=== PATIENT | male | born 1945 | race Caucasian/White ===

== ENCOUNTER 2016-04-29 05:12 | Day surgery (SDC) | payer OTHER, MEDICARE ==
[2016-04-08 14:29] LABS: BASO % 0.5 %; BASO ABS # 0.03 K/uL (0-0.2); COMPLETE YES; EOS % 1.9 %; HEMATOCRIT 43.8 % (42-52); IG% 0.2 %; LYMPH % 34.3 %; LYMPH ABS # 1.94 K/uL (1.2-3.4); MEAN CELL VOLUME 89.2 fL (80-100); MEAN CORPUSCULAR HEMOGLOBIN 30.5 pg (25-34); MEAN CORPUSCULAR HGB CONC 34.2 g/dl (32-36); MEAN PLATELET VOLUME 11.3 fL (7.4-10.4); MONO % 6.9 %; NEUT % 56.2 %; PLATELET COUNT 159 K/uL (130-400); RED BLOOD COUNT 4.91 M/uL (4.7-6.1); WHITE BLOOD COUNT 5.65 K/uL (4.8-10.8)
[2016-04-08 14:37] LABS: BLOOD UREA NITROGEN 19 mg/dl (7-18); BUN/CREATININE RATIO 19.1 (10-20); CALCIUM 8.9 mg/dl (8.5-10.1); CARBON DIOXIDE 28 mmol/L (21-32); CHLORIDE 104 mmol/L (98-107); GLUCOSE 113 mg/dl (70-99); POTASSIUM 4.3 mmol/L (3.5-5.1); SODIUM 141 mmol/L (136-145)
[2016-04-20 09:37] VITALS: BMI 24.0
[~2016-04-29] VITALS: Ht 175.3 cm; Wt 73.6 kg
[~2016-04-29 05:12] MED LIST: ASPI81TA28 PO; CHOL1000 PO; MULTCAP94 PO
[2016-04-29 05:32] VITALS: BP 159/82; PULSE 82; TEMP 36.7; O2SAT 95; Ht 175.3 cm; Wt 73.6 kg
[2016-04-29] MEDS ORDERED: LACTATED RINGER'S 1000ML 1,000 ML IV SCH ×3 (06:00→08:23)
--- NOTE | 2016-04-29 06:13 | History & Physical Bridge Note ---
H&P Re-Evaluation Bridge Note: I have examined the patient, reviewed the History & Physical and in the interval since the performance of the History & Physical I have noted the following changes of clinical significance: No changes noted pt marked at bedside
[2016-04-29] MEDS ORDERED: BUPIVACAINE 0.5 % 5 MG/1 ML MPF 30ML VIAL ONE (06:38)
[2016-04-29] MEDS ORDERED: FENTANYL CITRATE INJ 50 MCG/1 ML 2 ML VIAL ONE ×3 (06:39→08:25)
[2016-04-29] MEDS ORDERED: MIDAZOLAM HCL 1 MG/ML 2ML VIAL ONE (06:39)
[2016-04-29] MEDS ORDERED: LIDOCAINE HCL 2% 2 ML VIAL (20MG/ML) ONE (07:14)
[2016-04-29] MEDS ORDERED: PROPOFOL IV EMULSION 10 MG/ML 20 ML VIAL IV ONE (07:14)
[2016-04-29] MEDS ORDERED: DEXAMETHASONE SOD INJ 4 MG/ML VIAL ONE (07:14)
[2016-04-29] MEDS ORDERED: ONDANSETRON INJ 2 MG/ML 2 ML VIAL ONE ×2 (07:14→08:59)
[2016-04-29] MEDS ORDERED: EpHEDrine SULFATE INJ 50 MG/ML AMP ONE (07:50)
[2016-04-29] MEDS ORDERED: KETOROLAC TROMETHAMINE 30 MG/ML VIAL ONE (08:04)
[2016-04-29] MEDS ORDERED: BACITRACIN 50,000 UNITS IR ONE (08:07)
[2016-04-29] MEDS ORDERED: OXYC-57 PO (08:15)
--- NOTE | 2016-04-29 08:16 | Discharge Instructions ---
Discharge Instructions Visit Reason for Visit: Left Inguinal Hernia Discharge Discharge Diagnosis / Problem: Inguinal hernia repair Activity Recommendations Activity Limitations: as noted below Lifting Limitations: no more than 10 pounds Shower/Bathe: tomorrow Driving or Machine Use: resume 3 days after discharge Anesthesia . Post Anesthesia Instructions: If you have had General Anesthesia or IV Sedation: * Do not drive today. * Resume driving when surgeon permits. * Do not make important decisions or sign legal documents today. * Call surgeon for: 1. Temperature elevations greater than 101 degrees F. 2. Uncontrollable pain. 3. Excessive bleeding. 4. Persistent nausea and vomiting. 5. Medication intolerance (nausea, vomiting or rash). * For nausea and vomiting use only clear liquids such as: tea, soda, bouillon until nausea subsides, then gradually increase diet as tolerated. * If you have any concerns or questions, call your surgeon's office. If physician is unavailable and it is an emergency, call 911 or go to the nearest emergency room. . Instructions / Follow-Up Instructions / Follow-Up Dr. Leal in 1 week, call [phone] if you do not already have an appt Diet Recommendations Recommended Home Diet: no limitations Procedures Procedures Performed: Left Open Inguinal Hernia Repair with Mesh Pending Studies Studies pending at discharge: no Medical Emergencies . Who to Call and When: Medical Emergencies: If at any time you feel your situation is an emergency, please call 911 immediately. . Non-Emergent Contact Non-Emergency issues call your: Surgeon Call Non-Emergent contact if: you have a fever, temperature is above 101.5, your pain is not controlled, wound has increased redness . . "Provider Documentation" section prepared by Sergio Kee.
--- NOTE | 2016-04-29 08:23 | [facility] Post Operative Brief Note ---
Immediate Operative Summary Operative Date Apr 29, 2016. Pre-Operative Diagnosis Left Inguinal Hernia Post-Operative Diagnosis Same as preoperative diagnosis indirect and lipoma cord Procedure(s) Performed Left indirect Open Inguinal Hernia Repair with Mesh marlex and excision lipoma cord Surgeon Dr. Redd Leal Drill Punch Operator Surgeon(s) Charlene Alexis PA-C Estimated Blood Loss 2 mL Findings indirect and lipoma cord Specimens Permanent specimens A: Left inguinal hernia sac and lipoma of cord
[2016-04-29] MEDS ORDERED: MoRPHine SULFATE 4 MG/ML 1 ML CARP\\VIAL IV PRN (08:30)
[2016-04-29] MEDS ORDERED: ONDANSETRON INJ 2 MG/ML 2 ML VIAL IV PRN ×3 (08:30)
[2016-04-29] MEDS ORDERED: ATROPINE SULFATE 0.1 MG/ML 5ML SYR IV PRN (08:30)
[2016-04-29] MEDS ORDERED: FENTANYL CITRATE INJ 50 MCG/1 ML 2 ML VIAL IV PRN (08:30)
[2016-04-29] MEDS ORDERED: HYDROmorphone INJ 2 MG/ML SYR/VIAL IV PRN (08:30)
[2016-04-29] MEDS ORDERED: LABETALOL HCL IV 5 MG/ML 20ML IV PRN (08:30)
[2016-04-29] MEDS ORDERED: OXYCODONE/ACETAMINOPHEN 5-325 TAB PO PRN ×2 (08:30)
[2016-04-29] MEDS ORDERED: KETOROLAC TROMETHAMINE 30 MG/ML VIAL IV. PRN (08:30)
[2016-04-29 09:05] VITALS: BP 140/73; PULSE 83; TEMP 37.2; O2SAT 93
--- NOTE | 2016-04-29 09:20 | OPERATIVE REPORT ---
DATE OF OPERATION: 04/29/2016 PREOPERATIVE DIAGNOSIS: Left inguinal hernia. POSTOPERATIVE DIAGNOSIS: Left indirect inguinal hernia, lipoma of the cord. PROCEDURE: Repair with Marlex mesh and excision lipoma of the cord, open repair. SURGEON: Dr. Leal. COGNOS DEVELOPER: Charlene Dumont. OPERATION AND FINDINGS: SUMMARY: The patient was brought into the operating room theater under general anesthesia, the left lower abdomen was prepped with Hibiclens and properly draped, 0.5% Marcaine without epinephrine was used to infiltrate 2 fingerbreadths medial anterior superior iliac crest. Local anesthetic was used and an incision was made parallel to the inguinal ligament approximately 3 inches long, deepened through subcutaneous tissue. The patient had significant amount of small venous plexus in the subQ. We ligated this until hemostasis appeared satisfactory, although he had a tendency just basically had generalized ooze throughout the whole procedure. The dissection was then taken down to the external oblique. More local was used underneath the external oblique. An incision was made, the external oblique fascia was opened along the cord all the way down to the external ring. We elevated, identified the ilioinguinal nerve and elevated the superior underneath hemostats. We then elevated the cord and its structures over a Fabio drain. The patient had a significant amount of tissue beyond the external ring. Once we dissected that out. We identified the patient had a very long indirect sac with a sliding component. We resected approximately 2 inches of the sac, sutured it with 3-0 silk suture. We also similarly identified and removed lipoma of the cord. After this had been performed, the internal ring was a little bit wide, we approximated some transversalis fascia to get some of the fatty tissue around while we brought a sheet of Marlex mesh and cut it appropriately, sutured onto the symphysis pubis, shelving portion of the inguinal ligament above the conjoined tendon enough to reconstruct the internal ring after placing the nerve along the cord. The area was then checked for hemostasis and appeared satisfactory. We closed the external oblique with 3-0 silk suture, completely exteriorizing the mesh and sutures for subcutaneous tissue, 2-0 Dexon and jose for skin edges. Dressing was applied. The procedure was tolerated well by the patient. Estimated blood loss approximately 2 mL. Was taken to recovery room in good condition. I attest to the content of the Intraoperative Record and any orders documented therein. Any exceptions are noted below. MTDD
[2016-04-29 09:35] VITALS: BP 145/69; PULSE 84; TEMP 36.5; O2SAT 95
[2016-04-29] MEDS ORDERED: OXYCODONE/ACETAMINOPHEN 5-325 TAB ONE (09:36)
[2016-04-29 10:05] VITALS: BP 136/72; PULSE 91; TEMP 36.8; O2SAT 95
--- NOTE | 2016-04-29 10:55 | Anesthesiology Progress Note ---
Anesthesia Post Op Note Date & Time Apr 29, 2016 at 10:54 Vital Signs Pain Intensity: 1 Vital Signs Past 12 Hours Date Time Temp Pulse Resp B/P Pulse Ox O2 Delivery O2 Flow Rate FiO2 04/29/16 10:05 36.8 91 18 136/72 95 Room Air 04/29/16 09:35 36.5 84 18 145/69 95 Room Air 04/29/16 09:05 37.2 83 16 140/73 93 Room Air 04/29/16 08:55 36.5 84 23 04/29/16 08:55 84 23 92 04/29/16 08:53 116/91 04/29/16 08:50 84 17 94 04/29/16 08:50 83 17 04/29/16 08:48 141/77 04/29/16 08:45 80 21 04/29/16 08:45 81 21 95 04/29/16 08:43 141/74 04/29/16 08:40 84 20 94 04/29/16 08:40 85 20 04/29/16 08:38 109/88 04/29/16 08:35 80 21 96 04/29/16 08:35 79 21 04/29/16 08:33 121/66 04/29/16 08:30 75 14 04/29/16 08:30 76 14 100 04/29/16 08:28 118/71 04/29/16 08:25 77 17 04/29/16 08:25 76 17 100 04/29/16 08:23 123/67 04/29/16 08:20 83 19 04/29/16 08:20 82 19 100 04/29/16 08:17 128/69 04/29/16 08:15 36.8 75 14 128/69 100 Mask 10 04/29/16 05:32 36.7 82 16 159/82 95 Room Air Notes Mental Status: alert / awake / arousable, participated in evaluation Pt Amnestic to Procedure: Yes Nausea / Vomiting: adequately controlled Pain: adequately controlled Airway Patency, RR, SpO2: stable & adequate BP & HR: stable & adequate Hydration State: stable & adequate Anesthetic Complications: no major complications apparent
[2016-04-29] MEDS ORDERED: CEFAZOLIN SOD 1 GM VIAL ONE (11:16)
== END 2016-04-29 10:28 | disposition home or self-care (01) ==
LOC: C.ACU 05:12
PROVIDERS: ATTEND Surgery
DX: K40.90 Unilateral inguinal hernia, without obstruction or gangrene, not specified as recurrent (principal); D17.6 Benign lipomatous neoplasm of spermatic cord; J45.909 Unspecified asthma, uncomplicated; K57.90 Diverticulosis of intestine, part unspecified, without perforation or abscess without bleeding; Z85.46 Personal history of malignant neoplasm of prostate; A69.20 Lyme disease, unspecified; Z98.890 Other specified postprocedural states

== ENCOUNTER → 2016-08-06 | Outpatient (CLI) | payer OTHER, MEDICARE ==
[~2016-08-06] MED LIST changes: +OXYC-57 PO
[2016-08-06 12:43] LABS: BASO % 0.7 %; BASO ABS # 0.03 K/uL (0-0.2); COMPLETE YES; EOS % 1.4 %; HEMATOCRIT 45.1 % (42-52); IG% 0.2 %; LYMPH % 28.9 %; LYMPH ABS # 1.28 K/uL (1.2-3.4); MEAN CELL VOLUME 90.6 fL (80-100); MEAN CORPUSCULAR HEMOGLOBIN 30.7 pg (25-34); MEAN CORPUSCULAR HGB CONC 33.9 g/dl (32-36); MONO % 8.1 %; NEUT % 60.7 %; PLATELET COUNT 173 K/uL (130-400); RED BLOOD COUNT 4.98 M/uL (4.7-6.1); WHITE BLOOD COUNT 4.43 K/uL (4.8-10.8)
[2016-08-06 13:17] LABS: ALT/SGPT 38 U/L (12-78); AST/SGOT 24 U/L (15-37); BLOOD UREA NITROGEN 22 mg/dl (7-18); BUN/CREATININE RATIO 26.7 (10-20); CALCIUM 8.8 mg/dl (8.5-10.1); CARBON DIOXIDE 30 mmol/L (21-32); CHLORIDE 106 mmol/L (98-107); CREATININE 0.84 mg/dl (0.60-1.40); GLUCOSE 105 mg/dl (70-99); SODIUM 141 mmol/L (136-145)
[2016-08-06 13:23] LABS: ALB/GLOB RATIO 1.2 (0.9-2); ALKALINE PHOSPHATASE 148 U/L (45-117); CHOLESTEROL 187 mg/dl (0-200); HDL CHOLESTEROL 95 mg/dl; LDL CHOLESTEROL CALCULATED 80 mg/dl; PROSTATE SPECIFIC ANTIGEN < 0.010 ng/ml (0.000-4.000); TRIGLYCERIDES 58 mg/dl (0-150); VERY LOW DENSITY LIPOPROT CALC 12 mg/dl
[2016-08-06 13:38] LABS: ESTIMATED AVERAGE GLUCOSE 114 mg/dl; HA1C FLAG Normal (Normal)
== END | disposition home or self-care (01) ==
LOC: C.LAB1850 11:22
PROVIDERS: ATTEND Nurse Practitioner Family
DX: Z13.220 Encounter for screening for lipoid disorders (principal); R73.09 Other abnormal glucose; Z85.46 Personal history of malignant neoplasm of prostate

== ENCOUNTER → 2016-08-25 | Outpatient (CLI) | payer OTHER, MEDICARE ==
[2016-08-29 01:06] LABS: ALK PHOS ISO-INTESTINE 36 % (1-24); ALK PHOS ISO-LIVER 27 % (25-69); ALK PHOS ISO-PLACENTAL 0 % (<=0); ALK PHOS MACROHEPATIC 0 % (<=0); ALP (ALK P'TASE) 137 U/L (40-115)
== END | disposition home or self-care (01) ==
LOC: C.LAB1850 13:33
PROVIDERS: ATTEND Nurse Practitioner Family
DX: R74.8 Abnormal levels of other serum enzymes (principal)

== ENCOUNTER → 2016-10-20 | Outpatient (CLI) | payer OTHER, MEDICARE ==
--- NOTE | 2016-10-20 11:33 | DIAGNOSTIC IMAGING REPORT ---
ABDOMINAL ULTRASOUND, RIGHT UPPER QUADRANT HISTORY: ELEVATED LIVER ENZYMES. COMPARISON: Abdominal ultrasound 08/29/2015. FINDINGS: Pancreas: The pancreas demonstrates a normal echotexture. Liver: A 2 cm cyst within the right hepatic lobe. This is similar to the prior study. This contains a thin septation. Gallbladder: The gallbladder is surgically absent. CBD: 6 mm. Right kidney: No hydronephrosis. IMPRESSION: 1. Cholecystectomy. 2. Right hepatic lobe cyst which is not significantly changed. Electronically signed by: David Fernandes M.D. 10/20/2016 11:32 AM Dictated Date/Time: 10/20/2016 11:30 AM
== END | disposition home or self-care (01) ==
LOC: C.ULTR 10:45
PROVIDERS: ATTEND Registered Nurse
DX: R74.8 Abnormal levels of other serum enzymes (principal); K76.89 Other specified diseases of liver; Z90.49 Acquired absence of other specified parts of digestive tract

== ENCOUNTER → 2016-12-17 | Outpatient (CLI) | payer OTHER, MEDICARE ==
[~2016-12-17] MED LIST changes: -OXYC-57 PO
[2016-12-17 12:03] LABS: ALT/SGPT 31 U/L (12-78); AST/SGOT 21 U/L (15-37); BLOOD UREA NITROGEN 28 mg/dl (7-18); BUN/CREATININE RATIO 28.2 (10-20); CALCIUM 8.9 mg/dl (8.5-10.1); CARBON DIOXIDE 27 mmol/L (21-32); CHLORIDE 103 mmol/L (98-107); GLUCOSE 106 mg/dl (70-99); POTASSIUM 3.9 mmol/L (3.5-5.1); SODIUM 137 mmol/L (136-145)
[2016-12-17 12:07] LABS: ALKALINE PHOSPHATASE 150 U/L (45-117); PROSTATE SPECIFIC ANTIGEN < 0.010 ng/ml (0.000-4.000)
[2016-12-17 12:51] LABS: LYME DISEASE AB IGG POS (NEG); LYME DISEASE AB IGM POS (NEG)
[2016-12-22 04:37] LABS: 18KDIGG BAND REACTIVE (NONREACTIVE); 23KDIGG BAND REACTIVE (NONREACTIVE); 23KDIGM BAND REACTIVE (NONREACTIVE); 28KDIGG BAND NONREACTIVE (NONREACTIVE); 30KDIGG BAND NONREACTIVE (NONREACTIVE); 39KDIGG BAND REACTIVE (NONREACTIVE); 39KDIGM BAND NONREACTIVE (NONREACTIVE); 41KDIGG BAND REACTIVE (NONREACTIVE); 41KDIGM BAND REACTIVE (NONREACTIVE); 45KDIGG BAND REACTIVE (NONREACTIVE); 58KDIGG BAND REACTIVE (NONREACTIVE); 66KDIGG BAND REACTIVE (NONREACTIVE); 93KDIGG BAND NONREACTIVE (NONREACTIVE)
== END | disposition home or self-care (01) ==
LOC: C.LABPBG 09:13
PROVIDERS: ATTEND Family Medicine
DX: Z85.46 Personal history of malignant neoplasm of prostate (principal); R73.09 Other abnormal glucose; R74.8 Abnormal levels of other serum enzymes; R21 Rash and other nonspecific skin eruption

== ENCOUNTER → 2017-08-05 | Outpatient (CLI) | payer OTHER, MEDICARE ==
[2017-08-05 12:42] LABS: HEMATOCRIT 44.1 % (42-52); MEAN CELL VOLUME 88.9 fL (80-100); MEAN CORPUSCULAR HEMOGLOBIN 30.2 pg (25-34); MEAN PLATELET VOLUME 10.8 fL (7.4-10.4); PLATELET COUNT 169 K/uL (130-400); WHITE BLOOD COUNT 6.61 K/uL (4.8-10.8)
[2017-08-05 13:06] LABS: ALBUMIN 3.8 gm/dl (3.4-5.0); ALKALINE PHOSPHATASE 157 U/L (45-117); ALT/SGPT 33 U/L (12-78); AST/SGOT 23 U/L (15-37); BLOOD UREA NITROGEN 25 mg/dl (7-18); CALCIUM 8.6 mg/dl (8.5-10.1); CARBON DIOXIDE 28 mmol/L (21-32); CHOLESTEROL 178 mg/dl (0-200); CREATININE 0.92 mg/dl (0.60-1.40); GLUCOSE 98 mg/dl (70-99); LDL CHOLESTEROL CALCULATED 90 mg/dl; SODIUM 140 mmol/L (136-145); TOTAL PROTEIN 7.5 gm/dl (6.4-8.2)
== END | disposition home or self-care (01) ==
LOC: C.LAB1850 10:44
PROVIDERS: ATTEND Family Medicine
DX: Z00.00 Encounter for general adult medical examination without abnormal findings (principal); Z13.220 Encounter for screening for lipoid disorders; R73.09 Other abnormal glucose; R74.8 Abnormal levels of other serum enzymes; Z85.46 Personal history of malignant neoplasm of prostate

== ENCOUNTER → 2017-10-20 | Outpatient (CLI) | payer OTHER, MEDICARE ==
--- NOTE | 2017-10-20 09:33 | DIAGNOSTIC IMAGING REPORT ---
ABDOMINAL ULTRASOUND, RIGHT UPPER QUADRANT HISTORY: K76.89 Liver [id number]. COMPARISON: Abdominal ultrasound 10/20/2016. FINDINGS: Pancreas: The pancreas demonstrates a normal echotexture. Liver: There is again noted a 2 cm cyst within the right hepatic lobe. This is not significantly changed. No new hepatic lesions. Gallbladder: The gallbladder is surgically absent. CBD: 5 mm. Right kidney: No hydronephrosis. IMPRESSION: No significant change in the 2 cm right hepatic lobe cyst. Electronically signed by: David Fernandes M.D. 10/20/2017 9:31 AM Dictated Date/Time: 10/20/2017 9:30 AM
== END | disposition home or self-care (01) ==
LOC: C.ULTR 08:37
PROVIDERS: ATTEND Registered Nurse
DX: K76.89 Other specified diseases of liver (principal)